=== PATIENT | female | born 1995 | race Caucasian/White ===

== ENCOUNTER 2017-10-01 23:42 | Emergency (ER) | payer SELFPAY ==
[~2017-10-01] VITALS: Ht 162.6 cm; Wt 86.8 kg
[~2017-10-01 23:42] MED LIST: CIPR500T4 PO; PHEN-426 PO
[2017-10-01 23:53] VITALS: BP 115/59; PULSE 120; RESP 14; TEMP 98; O2SAT 98
--- NOTE | 2017-10-02 02:18 | PD ---
HPI Chief Complaint: Injury Time Seen by Provider: 02:05 Travel History International Travel<30 days: No Contact w/Intl Traveler<30days: No Traveled to known affect area: No History of Present Illness HPI 22-year-old female presents to the emergency department by private transportation for complaint of injury to the left ankle. Injury occurred just prior to arrival to the emergency department. Patient states she was running down a dog and slipped and injured her left ankle. Patient also sustained an abrasion to the dorsum of the left foot. Patient denies any injury. She did not hit her head did not have loss of consciousness did not injure her neck back chest abdomen pelvis or other extremity. No prior history of injury to the left lower leg ankle or foot. Patient denies any numbness tingling or weakness of the extremity. Patient rates pain as severe. Tetanus immunization is reportedly current. [facility] Past Medical History Narrative Medical Past family history negative past surgical history negative no tobacco use; nursing notes reviewed Social History Alcohol Use: No Tobacco Use: No Substance Use: No Allergies-Medications (Allergen,Severity, Reaction): Coded Allergies: No Known Allergies (Unverified , 03/28/16) Reported Meds & Prescriptions Reported Meds & Active Scripts Active Pyridium (Phenazopyridine HCl) 100 Mg Tab 100 Mg PO TID Cipro (Ciprofloxacin HCl) 500 Mg Tab 500 Mg PO BID Review of Systems Except as stated in HPI: all other systems reviewed are Neg Physical Exam Narrative GENERAL: Well-developed well-nourished female in obvious discomfort no respiratory distress; GCS 15 SKIN: Warm and dry. HEAD: Normocephalic. EYES: No scleral icterus. No injection or drainage. NECK: Supple, trachea midline. No JVD or lymphadenopathy. CARDIOVASCULAR: Regular rate and rhythm without murmurs, gallops, or rubs. RESPIRATORY: Breath sounds equal bilaterally. No accessory muscle use. GASTROINTESTINAL: Abdomen soft, non-tender, nondistended. MUSCULOSKELETAL: No cyanosis, or edema. Attention left lower extremity specifically left ankle soft tissue swelling without deformity patient has decreased range of motion secondary to pain dorsalis pedis pulses 2+ to palpation distally digits are neurovascular tendon intact with brisk capillary refill less than 2 seconds superficial abrasion over the distal foot at the base of the first toe at the first MTP. BACK: Nontender without obvious deformity. No CVA tenderness. Data Data Last Documented VS Vital Signs Date Time Temp Pulse Resp B/P (MAP) Pulse Ox O2 Delivery O2 Flow Rate FiO2 10/01/17 23:53 98.0 120 14 115/59 (77) 98 Orders Orders Ankle, Complete ([id number]) (10/02/17 ) Ice/Cold Pack (10/02/17 02:05) Wound Care (10/02/17 02:05) MDM Medical Decision Making Medical Screen Exam Complete: Yes Emergency Medical Condition: Yes Medical Record Reviewed: Yes Interpretation(s) ankle (L) FINDINGS: Three view exam was performed of the left ankle. The bony structures are in normal alignment. No evidence of fracture, dislocation, or soft tissue swelling. The ankle mortise is intact. No radiopaque foreign bodies are seen. Bony mineralization is normal. CONCLUSION: Unremarkable examination of the left ankle. Luis Alberto Guillen MD on October 02, 2017 at 2:23 Board Certified Radiologist. This report was verified electronically. Differential Diagnosis Abrasion, contusion, sprain strain subluxation dislocation fracture Narrative Course Ice pack applied; imaging study ordered Imaging study per reading radiologist is negative for fracture subluxation or dislocation Padded Reinaldo applied and crutches administered patient given weight-based ibuprofen Patient stable for outpatient management Diagnosis Primary Impression: Right ankle sprain Qualified Codes: S93.401A - Sprain of unspecified ligament of right ankle, initial encounter Additional Impression: Abrasion Referrals: Orthopedist as needed Primary Care Physician 2 days Patient Instructions: General Instructions Additional Instructions: Wear padded reinaldo Elevate left foot/ankle Use crutches to assist ambulation Take ibuprofen/Advil/Motrin 800 mg as often as every 8 hours as needed for pain associated with inflammation May take Tylenol as needed for minor pain Return to the emergency department for any concerns or change in condition Follow-up with orthopedist as needed call office to schedule follow-up appointment Follow-up with primary care provider in 2 days for reassessment Keep abrasion clean and dry Follow wound care directions Med/Other Pt SpecificInfo: Prescription(s) given Scripts Ibuprofen (Ibuprofen) 800 Mg Tab 800 MG PO Q8H Y for PAIN GREATER THAN 5, #10 TAB 0 Refills Prov: Laureen Perez MD 10/02/17 Disposition: 01 DISCHARGE HOME Condition: Stable Laureen Perez MD Oct 02, 2017 02:18
--- NOTE | 2017-10-02 02:25 | RADRPT ---
EXAM DATE/TIME: 10/02/2017 02:09 [place] COMPARISON: No previous studies available for comparison. INDICATIONS : Left ankle pain after fall on deck. MEDICAL HISTORY : None. SURGICAL HISTORY : None. ENCOUNTER: Initial ACUITY: 1 day PAIN SCORE: 10/10 LOCATION: Left ankle. FINDINGS: Three view exam was performed of the left ankle. The bony structures are in normal alignment. No ev idence of fracture, dislocation, or soft tissue swelling. The ankle mortise is intact. No radiopaqu e foreign bodies are seen. Bony mineralization is normal. CONCLUSION: Unremarkable examination of the left ankle. Luis Alberto Guillen MD on October 02, 2017 at 2:23 Board Certified Radiologist. This report was verified electronically.
[2017-10-02] MEDS ORDERED: IBUP1TAB7 PO (02:32)
[2017-10-02] MEDS ORDERED: IBUPROFEN 800 MG TAB PO ONE (02:45)
[2017-10-02 03:20] VITALS: BP 112/68
== END 2017-10-02 03:21 | disposition home or self-care (01) ==
LOC: PHED 23:42
DX: S93.401A Sprain of unspecified ligament of right ankle, initial encounter (principal); W01.0XXA Fall on same level from slipping, tripping and stumbling without subsequent striking against object, initial encounter
CPT/HCPCS: 73610; 99283; E0113